=== PATIENT | male | born 1990 | race Caucasian/White ===

== ENCOUNTER 2021-10-18 14:54 | Emergency (ER) | payer BC, SELFPAY ==
--- NOTE | ~2021-10-18 | XR_ITS ---
EXAMINATION: XR ankle RT min 3V DATE: 10/18/2021 15:47 INDICATION: Medial right ankle pain. TECHNIQUE: 4 views of right ankle were obtained. COMPARISON: None. FINDINGS: Bone alignment is normal. No fracture. Joint spaces are normal. There is medial ankle soft tissue swelling. IMPRESSION: 1. No fracture. Reviewed, dictated and finalized at location A. IMPRESSION: 1. No fracture.
--- NOTE | 2021-10-18 14:56 | ED.LOWEXIN ---
HPI - Extremity Injury (Lower) General Chief Complaint: Extremity Injury, Lower <Sera Talley APRN - Last Filed: 10/18/21 16:10> Stated Complaint: Right ankle Pain <Sera Talley APRN - Last Filed: 10/18/21 16:10> Source: patient and RN notes reviewed <Sera Talley APRN - Last Filed: 10/18/21 16:10> Mode of arrival: ambulatory <Sera Talley APRN - Last Filed: 10/18/21 16:10> Limitations: no limitations <Sera Talley APRN - Last Filed: 10/18/21 16:10> History of Present Illness HPI Narrative: 31-year-old male presents to the [facility] with complaints of right ankle pain for over 1 week maybe 10 days. Patient states that he works at the [employer] and wears very high work boots. Patient denies any injury. States that after he works 12-hour shifts there is some moderate swelling. Tenderness posterior medial malleolus. <Sera Talley APRN - Last Filed: 10/18/21 16:10> MD complaint: ankle injury <Sera Talley CUSTOMER EXPERIENCE ANALYST - Last Filed: 10/18/21 16:10> Related Data Home Medications: Home Medications Medication Instructions Recorded Confirmed venlafaxine 37.5 mg PO DAILY 10/18/21 10/18/21 venlafaxine 75 mg PO DAILY 10/18/21 10/18/21 <Sera Talley APRN - Last Filed: 10/18/21 16:10> Allergies/Adverse Reactions: Allergies Allergy/AdvReac Type Severity Reaction Status Date / Time No Known Allergies Allergy Unverified 10/18/21 15:06 <Sera Talley CUSTOMER EXPERIENCE ANALYST - Last Filed: 10/18/21 16:10> Review of Systems Review of Systems: All systems reviewed & are unremarkable except as noted in HPI and below <Sera Talley APRN - Last Filed: 10/18/21 16:10> Constitutional: Constitutional: Reports no additional constitutional complaints, Denies chills and Denies fever(s) <Sera Talley APRN - Last Filed: 10/18/21 16:10> Eyes: Eyes: Reports no additional eye complaints <Sera Talley CUSTOMER EXPERIENCE ANALYST - Last Filed: 10/18/21 16:10> ENT: Reports system reviewed and no additional complaints, except as documented and Denies sore throat <Sera Talley, CUSTOMER EXPERIENCE ANALYST - Last Filed: 10/18/21 16:10> Cardiovascular: Cardiovascular: Reports no additional cardiovascular complaints and Denies chest pain <Sera Talley, CUSTOMER EXPERIENCE ANALYST - Last Filed: 10/18/21 16:10> Respiratory: Respiratory: Reports no additional respiratory complaints, Denies cough, Denies dyspnea and Denies wheezing <Sera Talley, CUSTOMER EXPERIENCE ANALYST - Last Filed: 10/18/21 16:10> Gastrointestinal: Gastrointestinal: Reports no additional gastrointestinal complaints, Denies abdominal pain and Denies nausea <Sera Talley, CUSTOMER EXPERIENCE ANALYST - Last Filed: 10/18/21 16:10> Musculoskeletal: Musculoskeletal: Reports as per HPI, Denies back pain, Reports arthralgias (medial right ankle) and Reports joint swelling (medial right ankle ) <Sera Talley CUSTOMER EXPERIENCE ANALYST - Last Filed: 10/18/21 16:10> Integumentary/Breasts: Skin/Breast: Reports system reviewed and no additional complaints, except as docu <Sera Talley, CUSTOMER EXPERIENCE ANALYST - Last Filed: 10/18/21 16:10> Neurologic: Reports system reviewed and no additional complaints, except as documented <Sera Talley CUSTOMER EXPERIENCE ANALYST - Last Filed: 10/18/21 16:10> Psychiatric: Psychiatric: Reports no additional psychiatric complaints <Sera Talley CUSTOMER EXPERIENCE ANALYST - Last Filed: 10/18/21 16:10> Allergic/Immunologic: Allergic/Immunologic: Reports no additional allergic/immunologic complaints <Sera Talley, CUSTOMER EXPERIENCE ANALYST - Last Filed: 10/18/21 16:10> PMFSH Past Medical History Medical History: Medical History (Updated 10/18/21 @ 15:24 by Sera Talley APRN) Patient denies medical problems <Sera Talley CUSTOMER EXPERIENCE ANALYST - Last Filed: 10/18/21 16:10> Surgical History Surgical History: Surgical History (Updated 10/18/21 @ 15:22 by Sera Talley APRN) No pertinent past surgical history <Sera Talley APRN - Last Filed: 10/18/21 16:10> Social History Social History: Social History Occ
[2021-10-18 15:06] VITALS: BP 108/72; PULSE 90; RESP 16; TEMP 37.2; O2SAT 100
[2021-10-18 15:07] VITALS: BP 108/72; PULSE 90; RESP 16; TEMP 37.2; O2SAT 100
--- NOTE | 2021-10-18 15:20 | PC.NURSE ---
1515-- pt aware of our xray machine is down and is in agreement to go to [facility] to complete care. RAILROAD PASSENGER AGENT (topper) talking to RAILROAD PASSENGER AGENT (stephen), and i gave report to [facility], care turned over to them when pt arrives. pt ambulatory out of our facility and knows to go to [facility].
--- NOTE | 2021-10-18 15:39 | PC.NURSE ---
1517- Nurse to nurse report received from Aldo Serra.
--- NOTE | 2021-10-18 15:39 | PC.NURSE ---
1536- Pt arrived at [facility]. Ambulating through facility with steady limping gait.
== END 2021-10-18 16:05 | disposition home or self-care (01) ==
PROVIDERS: Emergency Provider Nurse Practitioner; PCP Family Medicine
DX: S93.401A Sprain of unspecified ligament of right ankle, initial encounter (principal); S96.911A Strain of unspecified muscle and tendon at ankle and foot level, right foot, initial encounter; X58.XXXA Exposure to other specified factors, initial encounter
CPT/HCPCS: 73610; 99213; G0463

== ENCOUNTER 2022-07-03 14:05 | Emergency (ER) | payer BC, SELFPAY ==
[2022-07-03 14:15] VITALS: BP 153/85; PULSE 97; RESP 12; TEMP 36.6; O2SAT 100
--- NOTE | 2022-07-03 14:28 | ED.WOUNDLAC ---
HPI - Wound/Laceration General Chief Complaint: Wound/Laceration Stated Complaint: Laceration Chin Time Seen by Provider: 07/03/22 14:28 Source: patient, RN notes reviewed and old records reviewed Mode of arrival: ambulatory Limitations: no limitations History of Present Illness HPI narrative: 32-year-old male presents to the [facility] with a laceration to his chin. Patient states approximately 3:00 a.m. 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 Area is 3 cm x 1 cm gaping. Bleeding is controlled. Patient states last Tdap was in January 09 had stitches in his face Onset (ago): hour(s) (Almost 12 hours) Patient tetanus UTD: Yes (December 2021) Related Data Allergies Allergy/AdvReac Type Severity Reaction Status Date / Time No Known Allergies Allergy Verified 07/03/22 14:19 Review of Systems Review of Systems: All systems reviewed & are unremarkable except as noted in HPI and below Constitutional: Constitutional: Reports no additional constitutional complaints Eyes: Eyes: Reports no additional eye complaints ENT: Reports system reviewed and no additional complaints, except as documented Cardiovascular: Cardiovascular: Reports no additional cardiovascular complaints, Denies chest pain and Denies dyspnea Respiratory: Respiratory: Reports no additional respiratory complaints, Denies chest congestion, Denies cough and Denies dyspnea Gastrointestinal: Gastrointestinal: Reports no additional gastrointestinal complaints, Denies abdominal pain, Denies nausea and Denies vomiting Musculoskeletal: Musculoskeletal: Reports no additional musculoskeletal complaints Integumentary/Breasts: Skin/Breast: Reports as per HPI Neurologic: Reports system reviewed and no additional complaints, except as documented Psychiatric: Psychiatric: Reports no additional psychiatric complaints Allergic/Immunologic: Allergic/Immunologic: Reports no additional allergic/immunologic complaints [facility] Past Medical History Medical History Patient denies medical problems Surgical History Surgical History No pertinent past surgical history Social History Social History Additional occupation/education comments: [employer] worker Gender identity (if verbalized by the patient): Male Comments At the time of my signature, I reviewed and agree with the nursing past medical, surgical, social, and family history. There is no relevant family history pertinent to the patient complaint. Exam Const: General: cooperative, healthy appearing, comfortable, no acute distress, well developed, alert and well nourished Nutritional Appearance: well nourished Orientation/consciousness: patient oriented x3 Limitations: no limitations HENMT: Head: normal to inspection Ears: hearing grossly normal bilaterally and external ears normal Face/Nose/Sinus: Normal external nose present, Normal nares present, Normal nasal mucous membranes and turbinates present and normal facial exam Face and sinus: normal facial exam Face images: 1. Gaping 3 x 1 cm laceration noted. Mild surrounding tissue swollen. No tenderness to the gums, mandible. No bruising noted. When trying to approximate the wound it was noted that the top 0.5 cm area was probably missing a piece of skin, avulsion of skin. Explained this to the patient. Approximated with 5 sutures. Explained to patient that the upper portion of the scar will be pronounced and possibly a keloid conform due to the time that it was open as well as the avulsion of skin Mouth: Yes Normal oral and palatal mucosa present, Yes lip normal and Yes moist mucous membranes Throat: posterior oropharynx normal and uvula midline Eyes: General: appearance normal, both eyes and all related structures Alignment and Position: align
== END 2022-07-03 15:10 | disposition home or self-care (01) ==
PROVIDERS: Emergency Provider Nurse Practitioner; PCP Family Medicine
DX: S01.81XA Laceration without foreign body of other part of head, initial encounter (principal); W26.8XXA Contact with other sharp object(s), not elsewhere classified, initial encounter; Y92.002 Bathroom of unspecified non-institutional (private) residence as the place of occurrence of the external cause
CPT/HCPCS: 12013; 99213; G0463